=== PATIENT | female | born 1970 | race Caucasian/White ===

== ENCOUNTER 2018-03-05 07:14 | Outpatient (CLI) | payer OTHER, SELFPAY ==
[2018-03-05 08:09] LABS: HCT 36.5 % (36.0-46.0); HGB 12.5 g/dL (12.0-15.5); Mean Corp. HGB Concentration 34.2 g/dL (32.0-36.0); Mean Corpuscular Hemoglobin 32.7 pg (27.0-33.0); Mean Corpuscular Volume 95.5 fL (80-95); Platelet Count 202 x1000/uL (130-400); RBC 3.82 m/cumm (4.00-5.20); RBC Distribution Width 12.1 % (11.7-14.6); White Blood Cell Count 4.79 k/cumm (4.4-10.8)
[2018-03-05 09:12] LABS: Anion Gap 6.1 mmol/L (3-11); BUN 19 mg/dL (7-18); CO2 27.9 mmol/L (21.0-32.0); CREATININE 0.92 mg/dL (0.55-1.02); Calcium 8.6 mg/dL (8.5-10.1); Chloride 105 mmol/L (98-107); Glucose 90 mg/dL (70-100); Potassium 3.9 mmol/L (3.5-5.1); Sodium 139 mmol/L (136-145); TSH (W/Ref FT4) 2.47 uIU/mL (0.358-3.74)
== END 2018-03-05 07:34 ==
PROVIDERS: PCP Family Medicine; Visit Provider Family Medicine
DX: I10 Essential (primary) hypertension (principal)
CPT/HCPCS: 36415; 80048; 85027; 84443

== ENCOUNTER 2018-04-12 12:22 | Outpatient (REF) | payer OTHER, SELFPAY ==
--- NOTE | 2018-04-12 10:02 | SKI_PTH ---
PATIENT: Mary Jane LOC: [facility] U#:[id number] AGE/SX: 47/F ROOM: RE04/12/[address]: Bill Buckley DO : 1970 BED: DIS: 04/12/2018 SPEC #: [id number] RECD: 04/12/18 18:10 STATUS: ELISSA REQ #: [id number] YONATAN: 04/12/18 10:[address]: Bill Buckley DEPT: Surgical Specimen RECD BY: Dinora Serrano ENTERED: 04/12/18 18:11 SP TYPE: SKI OT DR: Ilene Comer Tissues: 1 - SKIN BIOPSY(SHAVE/PUNCH) Procedures: SKIN LEVEL 4 Comments: [id number]
== END 2018-04-12 12:42 ==
LOC: LBN 12:22
PROVIDERS: PCP Family Medicine; Visit Provider Otolaryngology Otolaryngology/Facial Plastic Surgery
DX: L57.0 Actinic keratosis (principal)
CPT/HCPCS: 88305